=== PATIENT | male | born 1965 | race African-American/Black ===

== ENCOUNTER 2021-05-02 05:33 | Day surgery (SDC) | payer OTHER ==
[~2021-05-02] VITALS: Ht 172.7 cm; Wt 86.2 kg
[2021-05-02 06:50] LABS: HEMATOCRIT 41.8 % (42.0-54.0); HEMOGLOBIN 13.6 g/dL (13.5-17.5); MCH 27.5 pg (26.0-34.0); MCHC 32.6 g/dL (31.0-37.0); MCV 84.3 fL (80.0-100.0); MEAN PLATELET VOLUME 9.6 fL (7.4-10.4); RBC 4.96 10x6/uL (4.20-6.10); RDW 12.9 % (11.5-14.5)
[2021-05-02 07:18] LABS: CALC OSMOLALITY 277 mosm/kg (275-300); CALCIUM 8.7 mg/dL (8.5-10.1); CARBON DIOXIDE 31.1 mmol/L (21.0-32.0); CHLORIDE - SERUM 104 mmol/L (98-107); CREATININE - SERUM 0.9 mg/dL (0.6-1.3); GLUCOSE 112 mg/dL (74-106); POTASSIUM - SERUM 4.1 mmol/L (3.5-5.1); SODIUM 140 mmol/L (136-145); UREA NITROGEN 7 mg/dL (7-18); eGFR NON AFRICAN AMERICAN > 90 mL/min (90-120)
[2021-05-02] MEDS ORDERED: HYDROCHLOROTHIA25 MG (07:35)
[2021-05-02] MEDS ORDERED: BAYER CHEWABLE81 MG (07:40)
[2021-05-02] MEDS ORDERED: XALATAN 0.0052.5 ML (07:41)
[2021-05-02] MEDS ORDERED: SINGULAIR10 MG (07:42)
[2021-05-02] MEDS ORDERED: XOPENEX HFA15 GM (07:42)
[2021-05-02] MEDS ORDERED: OMEPRAZOLE20 M1 (07:42)
[2021-05-02 07:45] VITALS: BP 150/81; Ht 172.7 cm; Wt 86.2 kg
--- NOTE | 2021-05-02 11:13 | NUR ---
SPOKE SANAZ CROWLEY DIVORCE ATTORNEY REGARDING BP. NO NEW ORDERS
--- NOTE | 2021-05-02 12:54 | HP ---
PATIENT: HUNG MICHELLE MEDICAL RECORD: [id number] ACCOUNT: [id number] LOCATION:[facility] : 67 ADMISSION DATE: 05/02/21 PCP: No PCP HISTORY AND PHYSICAL EXAMINATION CHIEF COMPLAINT: Right hydrocele. HISTORY OF PRESENT ILLNESS: The patient has a symptomatic right hydrocele. He has undergone an ultrasound, which did confirm that the hydrocele was present. He is to undergo hydrocelectomy. The risks, possible complications, and alternatives of the procedure were explained to the patient. He elects to proceed. The discussion specifically included the possibility of a postoperative hematoma and the possibility that a drain would need to be placed. MEDICATIONS AT THE ASSISTED: Reviewed. ALLERGIES: No known drug allergies. SOCIAL HISTORY: Smoker. PAST MEDICAL AND SURGICAL HISTORY: Gastroesophageal reflux, hepatitis C which has been treated, hypertension as well as asthma. PHYSICAL EXAMINATION: GENERAL: The patient does not appear acutely ill. He does not appear chronically ill. VITAL SIGNS: Reviewed. EARS: External ears appear normal. EYES: Extraocular movements are intact. NECK: Trachea is midline. CHEST: No intercostal retractions. PULMONARY: Nonlabored. No stridor. IMPRESSION: Right hydrocele. PLAN: Right hydrocelectomy. TRANSINT:[id number] Voice Confirmation ID: [id number] DOCUMENT ID: [id number] cc: Kodi Perez APN [id number] JANIYA YUSUF MD at 1254 CC: KODI PEREZ APN [id number] DICTATION DATE: 05/02/21 0841 MECHANIC'S ASSISTANT: 05/02/21 0944 [id number] [place] [address]
--- NOTE | 2021-05-02 12:54 | OP ---
PATIENT NAME: HUNG MICHELLE MEDICAL RECORD: [id number] :67 LOCATION:D[facility]LY [facility] ADMISSION DATE: SURGEON: JANIYA YUSUF MD DATE OF OPERATION: 05/02/2021 PREOPERATIVE DIAGNOSIS: Symptomatic right hydrocele. POSTOPERATIVE DIAGNOSIS: Symptomatic right hydrocele. PROCEDURE: Right hydrocelectomy. SURGEON: Janiya Yusuf MD SHOW CARD LETTERER: None. BLOOD LOSS: Less than 25 cc. ANESTHESIA: General. COMPLICATIONS: None. The risks, possible complications, and alternatives of the procedure were explained to the patient. He elects to proceed. DESCRIPTION OF PROCEDURE: The patient was conveyed to the operating room electively on 05/02/2021. General anesthesia was induced by the anesthesia staff. The patient was frog legged. The genitals were sterilely prepped and draped. On the right side, I made a midline incision on the right scrotum. I dissected down to the hydrocele. I then bluntly dissected around the hydrocele and was able to deliver the hydrocele as well as the cord structures and the testis. I incised into the hydrocele. Clear fluid was aspirated with a pool sucker. I then incised the hydrocele in the midline. The excess hydrocele was excised with the electrocautery. The appendix testis was cauterized. I ensured that there was no arterial or venous injury with the handheld Doppler. Meticulous hemostasis was achieved by cauterizing the remaining portion of the hydrocele along its border. Some bleeding points were cauterized as well. Gerald was added to the cord structures for additional hemostasis. I then replaced the testicle in the right scrotum in the proper orientation. It was sutured together medially and laterally to the inside of the scrotum to prevent it from twisting. I again ensured with handheld Doppler that there was arterial and venous flow. The dartos fascia was approximated with interrupted 3-0 Vicryl. The subdermis was approximated with a running intracuticular 3-0 Vicryl. I then overran the suture line with a running 4-0 Vicryl Rapide suture for additional hemostasis. The patient was then extubated and conveyed to post-anesthesia care unit where he was in stable condition. He is going to be dismissed back to the detention on tramadol as well as Colace. There is no need for him to follow up with me in the office unless he develops a complication related to this operative procedure. The 4-0 Vicryl Rapide sutures are dissolvable and do not need to be removed. They will dissolve and fall out in 2-3 weeks. He is not to do any lifting or straining for about 3 weeks. TRANSINT:[id number] Voice Confirmation ID: [id number] DOCUMENT ID: [id number] cc: Kodi Sinha APN [id number] OPERATIVE REPORT [id number] HUNG MICHELLE, JANIYA GRANT at 1254 CC: KODI SINHA APN [id number] DICTATION DATE: 05/02/21 1010 WORD PROCESSOR OPERATOR: 05/02/21 10[id number] [place] [address]
--- NOTE | 2021-05-02 14:22 | NUR ---
IV D/C'D WITH CANNULA INTACT, PRESSURE HELD AND DRSG PLACED. DISCHARGE INSTRUCTIONS GIVEN AND PT VERBALIZED AN UNDERSTANDING.
== END 2021-05-02 12:50 | disposition home or self-care (01) ==
LOC: D.OPS 05:33
PROVIDERS: Anesthesiology; ATTEND Surgery
DX: N43.3 Hydrocele, unspecified (principal); K21.9 Gastro-esophageal reflux disease without esophagitis; I10 Essential (primary) hypertension; J45.909 Unspecified asthma, uncomplicated